=== PATIENT | male | born 1970 | race Caucasian/White ===

== ENCOUNTER → 2017-03-04 | Outpatient (CLI) | payer BC ==
[~2017-03-04] MED LIST: DOXY100C76 PO; DXY50 PO
--- NOTE | 2017-03-04 11:58 | DIAGNOSTIC IMAGING REPORT ---
LEFT ELBOW 3 VIEWS HISTORY: Left elbow PAIN COMPARISON: None. FINDINGS: No acute fracture or dislocation. No knee effusion. Calcification at the distal to the triceps tendon. This is consistent with chronic change. Cartilage spaces are maintained for age. Soft tissues are unremarkable. No radiopaque foreign bodies. IMPRESSION: Small amount of chronic calcification at the distal attachment the triceps tendon. Otherwise, normal left elbow. Electronically signed by: Cesar Downs M.D. 03/04/2017 11:56 AM Dictated Date/Time: 03/04/2017 11:54 AM
== END | disposition home or self-care (01) ==
LOC: C.RADBC 11:25
PROVIDERS: ATTEND Physician Assistant Medical
DX: M25.522 Pain in left elbow (principal)

== ENCOUNTER → 2017-07-07 | Outpatient (CLI) | payer BC ==
[~2017-07-07] MED LIST changes: -DXY50 PO
== END | disposition home or self-care (01) ==
LOC: C.PATHSPEC 16:21
PROVIDERS: ATTEND Dermatology
DX: L91.8 Other hypertrophic disorders of the skin (principal)

== ENCOUNTER 2017-08-18 20:26 | Emergency (ER) | payer BC ==
[~2017-08-18] VITALS: Ht 195.6 cm; Wt 97.3 kg
[2017-08-18 20:47] VITALS: TEMP 36.8; Ht 195.6 cm; Wt 97.3 kg
[2017-08-18] MEDS ORDERED: XYLOCAINE 1%/SOD BICARB 20 ML VIAL INFIL ONE (21:00)
[2017-08-18] MEDS ORDERED: BUPIVACAINE 0.5 % 5 MG/1 ML MPF 30ML VIAL INFIL ONE (21:00)
--- NOTE | 2017-08-18 21:22 | EMERGENCY ROOM VISIT NOTE ---
History First contact with patient: 20:56 Chief Complaint: FINGER PAIN Stated Complaint: R MIDDLE FINGER DISLOCATION History of Present Illness The patient is a 46 year old male who presents to the Emergency Room with complaints of deformity of the right third index finger. The patient was trying to put the sheets on the bed. He hit the distal end of his right third finger against the mattress pad. He has had difficulty extending the end of the finger since. He denies any significant pain. No prior injury to the finger. He is left-handed. He denies any numbness or tingling. Review of Systems 6 system review negative. Please see pertinent positives in the history of present illness section. Past Medical/Surgical History Medical Problems: (1) Raynauds syndrome Family History Patient reports no known family medical history. Social History Smoking Status: Never Smoker Alcohol Use: occasionally Drug Use: none Marital Status: Occupation Status: employed Current/Historical Medications Scheduled Doxycycline Hyclate (Doxycycline Hyclate), 50 MG PO BID Physical Exam Vital Signs Date Time Temp Pulse Resp B/P (MAP) Pulse Ox O2 Delivery O2 Flow Rate FiO2 08/18/17 22:06 69 135/68 99 08/18/17 20:47 36.8 61 18 144/87 100 Room Air Physical Exam VITALS: Vitals are noted on the nurse's note and reviewed by myself. Vital signs stable. GENERAL: 46-year-old male, in no acute distress, nondiaphoretic, well-developed well-nourished. SKIN: The skin was without rashes, erythema, edema, or bruising. HEAD: Normocephalic atraumatic. MUSCULOSKELETAL: RIGHT HAND: Deformity of the right third finger noted. The patient is flexed at the DIP joint. He is unable to extend against resistance at the DIP joint. No tenderness to palpation over the MCP, PIP or DIP joint. Capillary refills less than 2 seconds. Sensation the end of the finger is intact. NEURO: Patient was alert and oriented to person place and time. Normal sensation to touch. No focal neurological deficits. Medical Decision & Procedures ER Provider Diagnostic Interpretation: Finger x-ray IMPRESSION: No acute bony abnormality is seen in the right third finger. Electronically signed by: Chepe Lopez M.D. 08/18/2017 9:45 PM Dictated Date/Time: 08/18/2017 9:45 PM The status of this report is Signed. Draft = Not yet reviewed or approved by Radiologist. Signed = Reviewed and approved by Radiologist. <AttendingPhy></AttendingPhy> <FamilyPhy>Davy Nieto M.D.</FamilyPhy> < PrimaryPhy>Davy Nieto M.D.</PrimaryPhy> <UnitNumber>[id number]</UnitNumber> <VisitNumber>[id number]</VisitNumber> <PatientName>MCKAYLA JACOBSON</PatientName> <DateOfBirth>1970</DateOfBirth> <Location>[facility]</Location> <ServiceDate></ServiceDate> <MNE>ESINDI</MNE> <OrderingPhy>Estela Dejesus PA-C</ OrderingPhy> <OrderingPhyMNE>f rep ord dr canela</OrderingPhyMNE> <DictatingPhyMNE> f rep dict dr canela</DictatingPhyMNE> <CCListMNE>f rep ct mne</CCListMNE> < AdmittingPhyMNE>f pt admit dr canela</AdmittingPhyMNE> <AttendingPhyMNE>f pt attend dr canela</AttendingPhyMNE> ED Course The patient was seen and examined Imaging was performed. The findings were discussed with the patient. He was put in a metal splint. We thoroughly discussed discharge instructions. He voiced understanding, and was discharged in good condition Medical Decision Differential diagnosis: Fracture, contusion, tendon injury This patient is a 46-year-old left hand dominant male that presents emergency department with a deformity of the right third finger. On exam, he has a deficit with extension of the DIP joint. Flexion is full against resistance. Sensation in the fingers intact. Capillary refills less than 2 seconds. This presentation is consistent with mallet finger. He was given a metal splint. He will keep the splint in place until follow-up with orthopedics. He was given a number to call in the morning. He was comfortable with this plan of care, and discharged in good condition This chart was completed in part utilizing [employer] Voice Recognition software. Attempts were made to minimize the grammatical errors, random word insertions, pronoun errors and incomplete sentences. Any formal questions or concerns about the content, text or information contained within the body of this dictation should be directly addressed to the provider for clarification. Medication Reconcilliation Current Medication List: was personally reviewed by me Blood Pressure Screening Patient's blood pressure: Elevated blood pressure Blood pressure disposition: Elevated BP felt to be situational Impression Primary Impression: Mallet finger Departure Information Dispostion Home / Self-Care Condition [employer] Referrals Davy Nieto M.D. (PCP) Cory Rizzo D.O. Patient Instructions My [facility] Additional Instructions You were evaluated in the emergency department for a deformity of the right third finger. This is likely due to an injury called a mallet finger. This is a tendon injury. Please follow-up with orthopedics. Call tomorrow morning for a follow-up appointment. You should ideally be seen within approximately 1 week. Please keep the splint in place until seen by orthopedics. Please apply ice for 20 minute intervals as needed for pain or swelling Ibuprofen 600 mg and/or Tylenol 1000 mg every 8 hours. You may also alternate these medications for more effective pain relief: Ibuprofen --4 HRS--> Tylenol --4 HRS--> ibuprofen --4 HRS--> Tylenol .... Please do not hesitate to return to the emergency department with any new, worsening or concerning symptoms
--- NOTE | 2017-08-18 21:47 | DIAGNOSTIC IMAGING REPORT ---
RIGHT THIRD FINGER 3 VIEWS CLINICAL HISTORY: Third finger injury at the distal interphalangeal joint. FINDINGS: 3 views of the right third finger are obtained. No prior studies are available for comparison at the time of dictation. The skeletal structures are well mineralized. No fracture is seen. The third metacarpophalangeal and interphalangeal joints are maintained. The overlying soft tissues are within normal limits. IMPRESSION: No acute bony abnormality is seen in the right third finger. Electronically signed by: Chepe Lopez M.D. 08/18/2017 9:45 PM Dictated Date/Time: 08/18/2017 9:45 PM
[2017-08-18 22:06] VITALS: BP 135/68; PULSE 69; O2SAT 99
[2017-08-18] MEDS ORDERED: DXY50 PO (22:14)
== END 2017-08-18 22:07 | disposition home or self-care (01) ==
LOC: C.EDB 20:27 → C.EDD 22:07
DX: M20.011 Mallet finger of right finger(s) (principal)

== ENCOUNTER → 2017-11-01 | Outpatient (CLI) | payer BC ==
[~2017-11-01] MED LIST changes: -DOXY100C76 PO; +DXY50 PO
== END | disposition home or self-care (01) ==
LOC: C.RDSM 12:00
PROVIDERS: ATTEND Physical Medicine & Rehabilitation Sports Medicine
DX: M20.011 Mallet finger of right finger(s) (principal)